=== PATIENT | male | born 1995 | race Caucasian/White ===

== ENCOUNTER 2023-04-14 00:05 | Emergency (ER) | payer SELFPAY ==
--- NOTE | 2023-04-14 00:09 | XRR_ITS ---
PROCEDURE INFORMATION: Exam: XR Left Finger(s) Exam date and time: 04/14/2023 2:39 AM Age: 27 years old Clinical indication: Injury or trauma; Finger; Left; Patient HX: Patient sustained laceration to tip of thumb from knife while preparing dinner. ; Additional info: Left thumb injury TECHNIQUE: Imaging protocol: Radiologic exam of the left fingers. Views: Minimum 2 views. COMPARISON: No relevant prior studies available. FINDINGS: Bones/joints: Normal. Soft tissues: There is edema in the soft tissues. No radiopaque foreign body. XR/XR finger LT min 2V [id number] IMPRESSION: No radiopaque foreign body.
[2023-04-14 00:15] VITALS: BP 158/83; PULSE 103; RESP 20; TEMP 36.5; O2SAT 99; BMI 41.8
[2023-04-14 04:02] VITALS: RESP 18
[2023-04-14] MEDS: ondansetron 4 MG Tablet PO (04:02)
[2023-04-14] MEDS: HYDROmorphone 1 mg/mL INJ 1 mL IM ×2 (04:02→04:27)
[2023-04-14 04:20] VITALS: BP 162/83; PULSE 88; RESP 18; O2SAT 100
[2023-04-14 04:27] VITALS: RESP 18; O2SAT 100
[2023-04-14 05:10] VITALS: BP 143/90; RESP 18; O2SAT 98
--- NOTE | 2023-04-14 16:57 | W.ED.WOUNDLC ---
HPI - Wound/Laceration General: Chief Complaint: Wound/Laceration Stated Complaint: Left thumb injury Time Seen by Provider: 04/14/23 03:09 History of Present Illness: 27 year old male who cut his left thumb with a knife while fixing dinner. There is nail involvement. He seems to be in a lot of pain. Onset (ago): hour(s) Associated symptoms: Denies fever(s) or vomiting Review of Systems Const: Denies: fever(s) Card: Denies: chest pain Resp: Denies: dyspnea GI: Denies: vomiting Skin/Breast: Denies: lesions Physical Exam Const: GENERAL APPEARANCE: cooperative and anxious; not ill appearing and not frail appearing Eye: COMMON NORMALS: EOMs intact bilaterally Neck/C-Spine: GENERAL: Yes trachea midline Chest: CHEST: Yes Symmetrical chest wall rise Resp: COMMON NORMALS: normal respiratory effort Cardio: COMMON NORMALS: regular rate and regular rhythm RATE: regular rate RHYTHM: regular rhythm Extremity: OTHER: 1 centimeter laceration with the tip of the thumbnail involved to the distal thumb. Bleeding is controlled. Sensation is intact. Cap refill normal Neuro: ELIJAH COMA SCALE: document GCS findings Elijah coma scale eye opening: Spontaneous Rydal coma scale verbal response: Orientated Rydal coma scale motor response: Obey commands Elijah coma scale total score: 15 Procedures Laceration Laceration 1: Site: upper extremity Side (If applicable): left Size (cm): 1 Description: irregular Depth: simple, single layer Local Anesthetic: with bicarb Pre-repair: wound explored and irrigated extensively Skin layer closed with: other (dermabond) Technique: other Course Vital Signs: Vital signs: Vital Signs Temperature 97.7 F 04/14/23 00:15 Pulse Rate 88 04/14/23 04:20 Respiratory Rate 18 04/14/23 05:10 Blood Pressure 143/90 04/14/23 05:10 Pulse Oximetry 98 04/14/23 05:10 MDM - Wound/Laceration Medical Decision Making Closed with dermabond. Tetanus is up to date. No complications. Lab Data Radiology Impressions Finger X-Ray 04/14/23 00:09 IMPRESSION: No radiopaque foreign body. 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
== END 2023-04-14 05:12 | disposition home or self-care (01) ==
PROVIDERS: Emergency Provider Emergency Medicine
DX: S61.112A Laceration without foreign body of left thumb with damage to nail, initial encounter (principal); W26.0XXA Contact with knife, initial encounter; Y93.G1 Activity, food preparation and clean up; Y92.000 Kitchen of unspecified non-institutional (private) residence as the place of occurrence of the external cause
CPT/HCPCS: 12001; 73140; 96372; 99284; J1170; Q0162

== ENCOUNTER 2023-05-16 00:23 | Emergency (ER) | payer SELFPAY ==
[2023-05-16 00:27] VITALS: BP 158/87; PULSE 69; RESP 18; TEMP 36.6; O2SAT 96; BMI 43.0
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
[2023-05-16] MEDS: ondansetron 2 mg/ML SDV 2 mL 4 MG IM (01:02)
[2023-05-16] MEDS: ketorolac 60 mg/2 mL INJ IM (01:20)
[2023-05-16] MEDS: gabapentin 300 mg Capsule PO (01:45)
--- NOTE | 2023-05-16 01:46 | PC.NURSE ---
Patient was vaping in room. Nurse educated patient that he could not vape in his room. Patient verbalized understanding and put it away. Charge nurse notified.
--- NOTE | 2023-05-16 01:47 | PC.NURSE ---
Patient asked nurse if physician planned on doing a CT to figure out what's going on. Question was relayed to Dr Mcwilliams. Dr Mcwilliams explained that he believes the pain is from a hx of rib fracture. Information relayed to patient.
[2023-05-16 02:49] VITALS: BP 159/102
== END 2023-05-16 02:53 | disposition home or self-care (01) ==
PROVIDERS: Emergency Provider Emergency Medicine
DX: R07.89 Other chest pain (principal)
CPT/HCPCS: 96372; 99284; J1885; J2405

== ENCOUNTER 2023-05-21 23:46 | Emergency (ER) | payer SELFPAY ==
[2023-05-21 23:54] VITALS: BP 146/93; PULSE 119; RESP 18; TEMP 36.8; O2SAT 97; BMI 43.0
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
--- NOTE | 2023-05-21 23:56 | CTR_ITS ---
PROCEDURE INFORMATION: Exam: CT Abdomen And Pelvis Without Contrast Exam date and time: 05/22/2023 12:22 AM Age: 27 years old Clinical indication: Abdominal pain; Flank; Right; Prior surgery; Surgery date: 6+ months; Surgery type: Lithotripsy x3; Additional info: Right flank pain TECHNIQUE: Imaging protocol: Computed tomography of the abdomen and pelvis without contrast. Radiation optimization: All CT scans at this facility use at least one of these dose optimization techniques: automated exposure control; mA and/or kV adjustment per patient size (includes targeted exams where dose is matched to clinical indication); or iterative reconstruction. REPORTING DATA: Count of CT and Cardiac NM exams in prior 12 months: This patient has received 0 known CTs and 0 known cardiac nuclear medicine studies in the 12 months prior to the current study. COMPARISON: No relevant prior studies available. RADIATION DOSE METRICS: Total DLP (mGy-cm): 1503.23 FINDINGS: Lungs: The visualized lung bases are clear. Liver: Liver is hypodense. No suspicious mass. Gallbladder and bile ducts: No calcified gallstones or biliary dilation identified. Pancreas: Unremarkable with no suspicious mass. No ductal dilation. Spleen: The spleen is not enlarged. No suspicious mass is noted. Adrenal glands: Normal. No mass. Kidneys and ureters: No solid renal mass or hydronephrosis. Stomach and bowel: No small bowel obstruction or free air. No overt mucosal thickening. Mild sigmoid diverticulosis. Appendix: No evidence of appendicitis. Intraperitoneal space: Unremarkable. No free air. No suspicious fluid collection. Vasculature: No AAA or acute vascular lesion identified. Lymph nodes: No enlarged lymph nodes. Urinary bladder: Unremarkable as visualized. Reproductive: Unremarkable as visualized. Bones/joints: No acute fracture. Soft tissues: No acute or suspicious finding noted. CT/CT kidney stone [id number] IMPRESSION: 1. No obstructive urolithiasis or other acute finding. 2. Hepatic steatosis.
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
[2023-05-22 00:05] VITALS: PULSE 113; RESP 18; O2SAT 97
[2023-05-22] MEDS: sodium chloride 0.9% 1,000 ML 999 ML IV (00:08)
[2023-05-22] MEDS: ondansetron 2 mg/ML SDV 2 mL 4 MG IVP (00:11)
[2023-05-22] MEDS: morphine 4 mg/mL SDV 1 mL IVP (00:13)
[2023-05-22] MEDS: ketorolac 30 mg/mL INJ IVP (00:15)
[2023-05-22 00:29] LABS: Basophils # 0.1 10^3/uL (0.0-0.1); Basophils % 0.6 %; Eosinophils # 0.2 10^3/uL (0.0-0.8); Eosinophils % 2.5 %; Hematocrit 46.3 % (37-53); Lymphocytes # 2.1 10^3/uL (0.8-4.8); Lymphocytes % 24.3 %; Mean Corpuscular HGB Conc 34.1 g/dL (30-55); Mean Corpuscular Hemoglobin 32.6 pg (27-33); Mean Corpuscular Volume 95.7 fl (82-101); Mean Platelet Volume 11.5 fL (7.4-10.4); Monocytes # 0.5 10^3/uL (0.2-0.9); Monocytes % 5.7 %; Neutrophils # 5.65 10^3/uL (1.8-7.7); Neutrophils % 66.7 %; Nucleated Red Blood Cells % 0 %; Platelet Count 211 10^3/cmm (157-399); Red Blood Count 4.84 10^6/uL (3.85-5.65); Red Cell Distribution Width 12.9 % (12.1-15.1); White Blood Count 8.47 10^3/uL (3.29-11.43)
[2023-05-22 00:33] LABS: Alanine Aminotransferase 56 U/L (0-41); Albumin Level 4.4 g/dL (3.5-5.2); Alkaline Phosphatase 95 U/L (40-130); Anion Gap 15.4 (5-19); Aspartate Amino Transferase 32 U/L (0-40); Blood Urea Nitrogen 10 mg/dL (6-20); Calcium 9.3 mg/dL (8.5-10.5); Carbon Dioxide 24 mmol/L (22-29); Chloride 105 mmol/L (98-107); Globulin 3.1 g/dL (1.3-4.6); Glomerular Filtration Rate 101.2 mL/min (90-130); Glucose 156 mg/dL (65-115); Lipase 47 U/L (13-60); Osmolality Calculated 294 mOsm/kg (285-295); Potassium 3.4 mmol/L (3.5-5.1); Sodium 141 mmol/L (136-145); Total Bilirubin 0.5 mg/dL (0.15-1.2); Total Protein 7.5 g/dL (6.6-8.7)
[2023-05-22 00:59] VITALS: RESP 18
[2023-05-22] MEDS: HYDROmorphone 1 mg/mL INJ 1 mL IVP (00:59)
[2023-05-22 01:05] LABS: Add Urine Microscopic? NO; Charge for UA Resulting for Rev
[2023-05-22 01:08] LABS: Bilirubin Urine Neg (Negative); Blood Urine Neg (Negative); Glucose Urine UA Norm (Normal); Ketones Urine Negative (Negative); Leukocyte Esterase Urine Negative (Negative); Nitrate Urine Negative (Negative); Protein Urine Neg (Negative); Urine Appearance Clear (CLEAR); Urine Color Yellow (Yellow); Urobilinogen Urine 1 mg/dL (Negative); pH Urine 6 (5-7)
[2023-05-22] MEDS: HYDROcodone-acetaminophen 5-325 mg Tablet 1 TAB PO (02:47)
[2023-05-22 02:48] VITALS: BP 146/93; PULSE 113; RESP 18; TEMP 36.8; O2SAT 97
== END 2023-05-22 02:49 | disposition home or self-care (01) ==
PROVIDERS: Emergency Provider Emergency Medicine
DX: R10.9 Unspecified abdominal pain (principal)
CPT/HCPCS: 73110; 74176; 80053; 81003; 83690; 85025; 96361; 96374; 96375; 99285; J1170; J1885; J2270; J2405; J7030